=== PATIENT | male | born 1940 | race Caucasian/White ===

== ENCOUNTER 2018-05-21 21:49 | Inpatient (IN) | payer MEDICARE, BC | END 2018-05-30 14:55 | disposition home health service (06) | LOC: ER 21:49 → ED HOLD 23:55 → CICU 2S 05-23 11:20 → MED 3N 05-28 13:15 → PCU 3S 05-22 01:52 | PROC: 02100A3 Bypass Coronary Artery, One Artery from Coronary Artery with Autologous Arterial Tissue, Open Approach (ICD-10-PCS; principal; 2018-05-23 07:05) | PROC: 0213099 Bypass Coronary Artery, Four or More Arteries from Left Internal Mammary with Autologous Venous Tissue, Open Approach (ICD-10-PCS; 2018-05-23 07:05) | PROC: 06BP4ZZ Excision of Right Saphenous Vein, Percutaneous Endoscopic Approach (ICD-10-PCS; 2018-05-23 07:05) | PROC: 02L70ZK Occlusion of Left Atrial Appendage, Open Approach (ICD-10-PCS; 2018-05-23 07:05) | DX: I21.4 Non-ST elevation (NSTEMI) myocardial infarction (principal); N17.0 Acute kidney failure with tubular necrosis; I48.0 Paroxysmal atrial fibrillation; E11.42 Type 2 diabetes mellitus with diabetic polyneuropathy; I10 Essential (primary) hypertension ==

== ENCOUNTER 2022-02-07 11:53 | Day surgery (SDC) | payer MEDICARE, BC ==
[2022-02-06 13:31] LABS: ALBUMIN 4.1 G/DL (3.4-5.0); ANION GAP 9 (8-16); BASOPHILS % (AUTO) 0.7 % (0-1); BLOOD UREA NITROGEN 23 MG/DL (7-18); BUN/CREATININE RATIO 14.2 (5.4-32.0); CALCIUM 9.5 MG/DL (8.5-10.1); CHLORIDE 105 MMOL/L (99-107); CREATININE 1.62 MG/DL (0.60-1.10); EOSINOPHILS # (AUTO) 0.2 X10'3 (0-0.9); EOSINOPHILS % (AUTO) 4.5 % (0-6); GLUCOSE 194 MG/DL (70-104); HEMATOCRIT 40.3 % (42.0-52.0); HEMOGLOBIN 13.4 g/dl (14.0-17.9); LYMPHOCYTES # (AUTO) 0.7 X10'3 (1.1-4.8); LYMPHOCYTES % (AUTO) 13.4 % (21-51); MEAN CORPUSCULAR HEMOGLOBIN 29.6 PG (27.0-31.0); MEAN CORPUSCULAR HGB CONC 33.3 g/dL (33.0-36.5); MEAN PLATELET VOLUME 8.8 FL (7.4-10.4); MONOCYTES # (AUTO) 0.5 X10'3 (0-0.9); MONOCYTES % (AUTO) 8.8 % (2-12); NEUTROPHILS % (AUTO) 72.6 % (42-75); PLATELET COUNT 171 X10'3 (140-440); POTASSIUM 4.6 MMOL/L (3.5-5.1); RED BLOOD COUNT 4.53 X10'6 (4.70-6.10); RED CELL DISTRIBUTION WIDTH 15.2 % (11.5-14.5); SODIUM 142 MMOL/L (135-145); TOTAL CARBON DIOXIDE 27.7 MMOL/L (24-32); WHITE BLOOD COUNT 5.5 X10'3 (4.5-11.0); eGFR 41 ML/MIN
[2022-02-06 13:35] LABS: APTT 37 SECONDS (22-32)
[~2022-02-07] VITALS: Ht 185.4 cm; Wt 97.8 kg
[~2022-02-07 11:53] MED LIST: ALLO100T PO; AMIO200T61 PO; APIX5TAB3 PO; ASPI-1071 PO; ATOR10TA PO; CHOL10002 PO; COL100C PO; DOCO1CAP5 PO; FENO145T38 PO; FINA5TAB11 PO; NEBI5TAB10 PO; PANT-47 PO; SITA1TAB6 PO
[2022-02-07 12:13] VITALS: BP 148/64
[2022-02-07] MEDS ORDERED: fentaNYL/PF 50MCG/1 ML 2ML syringe IV ONE (12:20)
[2022-02-07] MEDS ORDERED: MIDAZolam 1mg/ml 10ml vial IV ONE (12:20)
[2022-02-07] MEDS ORDERED: normal saline 1000ml 1,000 ML IV SCH (12:20)
[2022-02-07] MEDS ORDERED: UBID100C16 PO (12:26)
[2022-02-07] MEDS ORDERED: LOSA100T57 PO (12:26)
[2022-02-07] MEDS ORDERED: ATOR-2 PO (12:26)
[2022-02-07] MEDS ORDERED: RIVA20TA PO (12:26)
[2022-02-07] MEDS ORDERED: SPIR25TA5 PO (12:26)
[2022-02-07] MEDS ORDERED: CARV25TA2 PO (12:26)
[2022-02-07] MEDS ORDERED: AMIO200T61 PO (12:26)
--- NOTE | 2022-02-07 12:47 | NUR ---
Cardioversion cancelled. Patient a-paced per EKG.
== END 2022-02-07 12:47 | disposition home or self-care (01) ==
LOC: SSTAY O 11:53
PROVIDERS: ATTEND Student in an Organized Health Care Education/Training Program
DX: I48.91 Unspecified atrial fibrillation (principal); Z53.8 Procedure and treatment not carried out for other reasons; E11.9 Type 2 diabetes mellitus without complications; I25.10 Atherosclerotic heart disease of native coronary artery without angina pectoris; I11.0 Hypertensive heart disease with heart failure; I50.9 Heart failure, unspecified; I48.0 Paroxysmal atrial fibrillation; K21.9 Gastro-esophageal reflux disease without esophagitis; I73.9 Peripheral vascular disease, unspecified; Z86.73 Personal history of transient ischemic attack (TIA), and cerebral infarction without residual deficits; Z79.899 Other long term (current) drug therapy; Z98.890 Other specified postprocedural states; Z79.01 Long term (current) use of anticoagulants
CPT/HCPCS: 36415; 80048; 85025; 85610; 85730; 93005; A4620; J7030